=== PATIENT | female | born 1950 | race Caucasian/White ===

== ENCOUNTER → 2021-08-01 | Emergency (ER) | payer MEDICAID ==
[~2021-08-01] VITALS: Ht 157.5 cm; Wt 63.6 kg
[~2021-08-01] MED LIST: ACETAMINOPHEN 500 MG TABLET PO ONE
[2021-08-01 19:03] VITALS: BP 156/70
== END | disposition home or self-care (01) ==
LOC: EDUNIT# 15:43 → EMS 15:49
DX: U07.1 COVID-19 (principal)
CPT/HCPCS: 71045; 99284; U0003

== ENCOUNTER 2021-08-05 05:01 | Emergency (ER) | payer MEDICARE ==
[~2021-08-05] VITALS: Ht 157.5 cm; Wt 63.6 kg
[2021-08-05] MEDS ORDERED: ALBU90AE2 IN (05:16)
[2021-08-05] MEDS ORDERED: BENZ100C68 PO (05:16)
[2021-08-05] MEDS ORDERED: DOXY100C5 PO (05:16)
[2021-08-05 05:51] LABS: COVID AG,FIA SOURCE NASOPHARYNGEAL
[2021-08-05 05:58] LABS: BASOPHILS % (AUTO) 0.2 % (0.0-2.0); EOSINOPHILS % (AUTO) 0.1 % (1.0-6.0); HEMATOCRIT 44.6 % (36-46); HEMOGLOBIN 15.5 g/dL (12.0-16.0); LYMPHOCYTES # (AUTO) 1.5 K/uL (1.0-4.8); LYMPHOCYTES % (AUTO) 18.6 % (22.0-44.0); MEAN CORPUSCULAR HEMOGLOBIN 29.3 pg (26.0-34.0); MEAN CORPUSCULAR HGB CONC 34.7 G/dL (31.0-37.0); MEAN CORPUSCULAR VOLUME 84 fL (80-100); MONOCYTES # (AUTO) 0.7 K/uL (0.1-1.0); MONOCYTES % (AUTO) 9.1 % (2.0-9.0); NEUTROPHILS # (AUTO) 5.8 K/uL (1.8-7.7); PLATELET COUNT (AUTO) 348 K/uL (150-450); RED BLOOD CELL COUNT(AUTO) 5.29 MIL/uL (4.00-5.20); RED CELL DISTRIBUTION WIDTH 13.1 % (11.5-14.5)
[2021-08-05 06:06] LABS: ANION GAP 14 mmol/L (8-16); CALCIUM, TOTAL 9.1 mg/dL (8.8-10.5); CARBON DIOXIDE 24 mmol/L (22-29); CHLORIDE 98 mmol/L (98-107); CREATININE 0.75 mg/dL (0.60-1.30); GLUCOSE,RANDOM 314 mg/dL (70-110); POTASSIUM 3.4 mmol/L (3.5-5.1); SODIUM SERUM 136 mmol/L (136-145); UREA NITROGEN, BLOOD 14 mg/dL (7-18)
[2021-08-05 06:07] LABS: GLOMERULAR FILTR. RATE CALC > 60 mL/min (>60)
[2021-08-05 06:16] LABS: ALANINE AMINOTRANSFERASE 35 U/L (12-78); ALKALINE PHOSPHATASE 83 U/L (46-116); ASPARTATE AMINOTRANSFERASE 31 U/L (15-37); BILIRUBIN,TOTAL 0.9 mg/dL (0.1-1.0); LIPASE 110 U/L (73-393); TOTAL PROTEIN, SERUM 7.8 g/dL (6.4-8.2)
[2021-08-05 06:41] LABS: B-TYPE NATRIURETIC PEPTIDE 37 pg/mL (0-100)
[2021-08-05] MEDS: DEXAMETHASONE SOD PHOS 4 MG/ML VIAL IVP ONE (06:49)
[2021-08-05 07:10] LABS: D-DIMER 0.52 mg/L FEU (0.00-0.50); INR 1.1 (0.9-1.1); PROTHROMBIN TIME 11.5 SEC (9.4-11.6)
[2021-08-05 07:17] LABS: C-REACTIVE PROTEIN QUANT 10.83 mg/dL (0.00-0.30); FERRITIN 476 ng/mL (8-252); LACTATE DEHYDROGENASE 411 U/L (81-234)
[2021-08-05] MEDS: AZITHROMYCIN 500 MG/NS 250 ML IV ONE (07:31)
[2021-08-05] MEDS: CefTRIAXone 1 GM/DEXTROSE 50 ML IV ONE (07:31)
[2021-08-05 08:10] LABS: INFLUENZA TYPE A NEGATIVE FOR TYPE A (NEGATIVE); INFLUENZA TYPE B NEGATIVE FOR TYPE B (NEGATIVE)
[2021-08-05 11:15] VITALS: BP 109/75
== END 2021-08-05 11:57 | disposition short-term general hospital (02) ==
LOC: EMS 05:02
DX: R09.02 Hypoxemia (principal); J12.82 Pneumonia due to coronavirus disease 2019; Z20.822 Contact with and (suspected) exposure to COVID-19
CPT/HCPCS: 36415; 71045; 80053; 82728; 83605; 83615; 83690; 83880; 84145; 84484; 85025; 85379; 85610; 85730; 86140; 87040; 87426; 87804; 93005; 96365; 96368; 96375; 99291; J0456; J0696; J1100; U0003